=== PATIENT | female | born 1960 | race Caucasian/White ===

== ENCOUNTER → 2017-01-28 | Outpatient (CLI) | payer BC ==
[~2017-01-28] MED LIST: CALC600T9 PO; MULT1CAP6 PO; OSTEOBIFLEX PO; VITAMIN C PO
== END | disposition home or self-care (01) ==
LOC: C.RDSM 11:28
PROVIDERS: ATTEND Physical Medicine & Rehabilitation Sports Medicine
DX: Z47.1 Aftercare following joint replacement surgery (principal); Z96.649 Presence of unspecified artificial hip joint

== ENCOUNTER → 2017-05-31 | Outpatient (CLI) | payer BC ==
--- NOTE | 2017-05-31 15:49 | MAMMOGRAPHY REPORT ---
BILATERAL DIGITAL SCREENING MAMMOGRAM TOMOSYNTHESIS WITH CAD: 05/31/2017 CLINICAL HISTORY: Routine screening. Patient has no complaints. TECHNIQUE: Breast tomosynthesis in addition to standard 2D mammography was performed. Current study was also evaluated with a Computer Aided Detection (CAD) system. COMPARISON: Comparison is made to exams dated: 05/29/2016 mammogram, 05/26/2015 mammogram, 03/17/2014 edin mogram, 03/16/2013 mammogram, 03/13/2012 mammogram, and 03/12/2011 mammogram - [facility]. BREAST COMPOSITION: There are scattered areas of fibroglandular density in both breasts. FINDINGS: No suspicious masses, calcifications, or areas of architectural distortion are noted in ei ther breast. There has been no significant interval change compared to prior exams. A biopsy marker clip is again noted in the right upper outer quadrant. Benign-appearing right upper outer quadrant b reast masses are stable. IMPRESSION: ACR BI-RADS CATEGORY 2: BENIGN There is no mammographic evidence of malignancy. A 1 year screening mammogram is recommended. The pa tient will receive written notification of the results. Approximately 10% of breast cancers are not detected with mammography. A negative mammographic report should not delay biopsy if a clinically suggestive mass is present. Beth Herrmann M.D. /:05/31/2017 15:30:57 Motorcycle Subassembly Repairer: Lorin CORRAL(Luc)(M), [facility] letter sent: Normal 1/2 BI-RADS Code: ACR BI-RADS Category 2: Benign
== END | disposition home or self-care (01) ==
LOC: C.MAMM 14:36
PROVIDERS: ATTEND Family Medicine
DX: Z12.31 Encounter for screening mammogram for malignant neoplasm of breast (principal)

== ENCOUNTER 2021-02-01 06:07 | Observation (INO) ==
--- NOTE | 2021-01-06 14:16 | PAT Medication Instructions ---
Medication Instructions Date of Service January 06, 2021 Home Medications ascorbic acid (vitamin C) [Vitamin C] 500 mg PO HS calcium citrate-vitamin D3 [Citracal + D Maximum] 1 tab PO HS coQ10 (ubiquinol) 100 mg PO HS cranberry 500 mg PO HS ibuprofen 400 mg PO Q6H PRN lactobacillus combination no.4 [Probiotic] 3,000 mmu cells PO QAM magnesium oxide 400 mg PO HS multivitamin 1 tab PO HS [id number]-liikjrzc-lxvnsw [Vision Plus Lutein] 1 tab PO HS rosuvastatin [Crestor] 10 mg PO HS turmeric 400 mg PO HS vitamin B complex 1 tab PO HS ASK your surgeon for instructions ibuprofen 400 mg PO Q6H PRN STOP taking 2 weeks before surgery (or as soon as possible if surgery is within 2 weeks) coQ10 (ubiquinol) 100 mg PO HS cranberry 500 mg PO HS turmeric 400 mg PO HS DO NOT take the morning of surgery lactobacillus combination no.4 [Probiotic] 3,000 mmu cells PO QAM Take evening before surgery ascorbic acid (vitamin C) [Vitamin C] 500 mg PO HS calcium citrate-vitamin D3 [Citracal + D Maximum] 1 tab PO HS magnesium oxide 400 mg PO HS multivitamin 1 tab PO HS rosuvastatin [Crestor] 10 mg PO HS vitamin B complex 1 tab PO HS Other Notes If you have any questions please call us at [phone] or [phone] or [phone] or [phone]
--- NOTE | 2021-01-09 12:32 | Anesthesiology Consultation ---
Date of Service January 09, 2021 Assessment & Plan (1) Encounter for pre-operative examination: COVID Status: As of 01/09 assessment, patient denies travel to endemic area, known exposure/sick contacts, or symptoms of COVID19. Patient instructed that they and their household members must follow strict social distancing guidelines, wear a mask in public and avoid travel/events/gatherings for 14 days prior to surgery. Preoperative COVID19 testing to be completed prior to surgery per surgeon's arrangements. Patient made aware to self-isolate as much as possible between COVID testing and surgery. Travel via plane to [place] to see family 01/16-01/24, COVID test to be done 01/25 at [facility]. Pt is fully vaccinated. Discussed case with clinical PAT staff. In order to allow for time between higher-risk activity (flying) and COVID test, will skip 01/25 PSH test and do [place] test at [facility] on Tuesday 01/30. Surgeon's office made aware will need order placed for test to be done here on 01/30. Patient also notified. Chart Review Chart Review: Acceptable Risk for Surgery (pending pcp clearance 01/11) and Patient seen in Pre Admission Testing Teaching & Discussion Instructed NPO after midnight before surgery, except medications with 15 cc of water. Medication instructions provided according to the PAT guidelines. History Surgery Operation Date: 02/01/21 09:15 Proposed Procedures p Left Total Knee Arthroplasty - Bautista Giraldo MD Height/Weight Height: 5 ft 8 in Weight: 96.162 kg Allergies Allergy/AdvReac Type Severity Reaction Status Date / Time Penicillins Allergy Intermediate HIVES Verified 12/20/20 16:11 Medications Home Medications Medication Instructions Recorded Confirmed Last Taken ascorbic acid (vitamin C) [Vitamin 500 mg PO HS 12/20/20 12/20/20 Unknown C] calcium citrate-vitamin D3 1 tab PO HS 12/20/20 12/20/20 Unknown [Citracal + D Maximum] coQ10 (ubiquinol) 100 mg PO HS 12/20/20 12/20/20 Unknown cranberry 500 mg PO HS 12/20/20 12/20/20 Unknown ibuprofen 400 mg PO Q6H PRN 12/20/20 12/20/20 Unknown lactobacillus combination no.4 3,000 mmu cells PO QAM 12/20/20 12/20/20 Unknown [Probiotic] magnesium oxide 400 mg PO HS 12/20/20 12/20/20 Unknown multivitamin 1 tab PO HS 12/20/20 12/20/20 Unknown dewffskfqidu-uavkmhsl-ywqpnl 1 tab PO HS 12/20/20 12/20/20 Unknown [Vision Plus Lutein] rosuvastatin [Crestor] 10 mg PO HS 12/20/20 12/20/20 Unknown turmeric 400 mg PO HS 12/20/20 12/20/20 Unknown vitamin B complex 1 tab PO HS 12/20/20 12/20/20 Unknown Past Medical History Medical History Hyperlipidemia Obesity Osteoarthritis Sleep apnea CPAP -- pt reports full compliance, does not even nap without it. SOB (shortness of breath) on exertion OUT OF SHAPE-HASN'T EXERCISED LATELY Exercise / Class Metabolic Activity II 4-5 Yardwork/Stairs/Walk up hill Past Family History Family History Grandfather (Maternal) Family history of diabetes mellitus Past Surgical History Surgical History History of colonoscopy History of tonsillectomy History of total hip arthroplasty RIGHT Past Anesthesia History No Hx of Anesthesia Complications and No Family Hx of Anesthesia Complications History of PONV No Hx of PONV and No Hx of Motion Sickness Social History Smoking Status: Former smoker Do You Dip or Chew Tobacco: No Smoking End Date: QUIT IN COLLEGE Hx Alcohol Use: Yes Alcohol type: beer alcohol intake frequency: 0-2 drinks per day (1-2 per day, light beer) Hx Substance Use: No Review of Systems Pt denies any recent chest pain, shortness of breath, palpitations, cough, fever, URI, or uncontrolled acid reflux. Physical Exam Vital Signs BP: 113/76 P: 75bpm SPO2: 96% RA T: 98.1 F R: 16 ENMT Mouth: + dental restorations (many crowns and implants); no chipped teeth and no loose teeth Thyromental Distance: < 3.5 Finger Breadths (2.5) Mallampati Class: IV Neck + shortened thyromental distance; neck extension not limited Respiratory normal respiratory effort, lungs clear to auscultation Cardiovascular RRR, no murmur, no edema Testing Laboratory Results 01/09/21 12:47 01/09/21 12:47 PT 10.6 Seconds (9.0-12.0) 01/09/21 12:47 INR 1.0 (0.9-1.1) 01/09/21 12:47 APTT 25.4 Seconds (21.0-31.0) 01/09/21 12:47 Urine Color Yellow 01/09/21 12:47 Urine Appearance Clear (Clear) 01/09/21 12:47 Urine pH 5.5 (4.5-7.5) 01/09/21 12:47 Ur Specific [place] 1.007 (1.000-1.030) 01/09/21 12:47 Urine Protein Negative (Negative) 01/09/21 12:47 Urine Glucose (UA) Negative (Negative) 01/09/21 12:47 Urine Ketones Negative (Negative) 01/09/21 12:47 Urine Nitrite Negative (Negative) 01/09/21 12:47 Ur Leukocyte Esterase Negative (Negative) 01/09/21 12:47 Blood Type O Positive 01/09/21 12:47 Antibody Screen NEGATIVE 01/09/21 12:47 Electrocardiogram Date: 01/09/21 Findings: + NSR @ (63bpm) Low voltage QRS. No significant change compared with 2012 EKG. *unconfirmed Chest X-Ray Date: 01/09/21 FINDINGS: The cardiac and mediastinal contours are normal. There is no evidence of focal pulmonary consolidation. There is no evidence of failure. No pleural effusions are visualized.[A 5 mm left upper lung zone opacities felt to represent either a vascular summation or postinflammatory nodule. IMPRESSION: No active disease in the chest.
[2021-01-09 13:14] LABS: Basophils # (auto) 0.03 K/uL (0-0.2); Basophils % (auto) 0.5 %; Eosinophils % (auto) 1.7 %; Hematocrit (blood only) 40.1 % (37-47); Hemoglobin 13.6 g/dL (12.0-16.0); Lymphocytes # (auto) 2.25 K/uL (1.2-3.4); Lymphocytes % (auto) 38.1 %; Mean Corpuscular Hemoglobin 31.2 pg (25-34); Mean Corpuscular Hgb Conc 33.9 g/dL (32-36); Mean Platelet Volume 9.8 fL (7.4-10.4); Monocytes # (auto) 0.39 K/uL (0.11-0.59); Monocytes % (auto) 6.6 %; Neutrophils # (auto) 3.13 K/uL (1.4-6.5); Neutrophils % (auto) 53.1 %; Platelet Count 215 K/uL (130-400); RDW Standard Deviation 43.8 fL (36.4-46.3); Red Blood Count 4.36 M/uL (4.2-5.4)
[2021-01-09 13:21] LABS: Appearance Urine Clear (Clear); Bilirubin Urine Negative (Negative); Blood Urine Negative (Negative); Color Urine Yellow; Glucose Urine UA Negative (Negative); Ketones Urine Negative (Negative); Leukocyte Esterase Urine Negative (Negative); Nitrite Urine Negative (Negative); Protein Urine Negative (Negative); Specific Gravity Urine 1.007 (1.000-1.030); Urobilinogen Urine Negative (Negative); pH Urine 5.5 (4.5-7.5)
[2021-01-09 13:27] LABS: Partial Thromboplastin Time 25.4 Seconds (21.0-31.0); Prothrombin Time 10.6 Seconds (9.0-12.0)
--- NOTE | 2021-01-09 13:35 | XRay Report ---
XR chest Pre-admission PA/Lat CLINICAL HISTORY: Preoperative chest COMPARISON STUDY: December 2012 FINDINGS: The cardiac and mediastinal contours are normal. There is no evidence of focal pulmonary co nsolidation. There is no evidence of failure. No pleural effusions are visualized.[A 5 mm left upper lung zone opacities felt to represent either a vascular summation or postinflammatory nodule. IMPRESSION: No active disease in the chest. ACT 112: Negative or not required by law. Electronically signed by: Carlitos Yuen M.D. 01/09/2021 1:34 PM
[2021-01-09 15:11] LABS: Calcium 9.9 mg/dl (8.5-10.1); Creatinine Clr Calc Pharmacy 89.6 ml/min; Est GFR (African American) 90.8; Est GFR (Non-African American) 78.3
--- NOTE | 2021-01-10 14:21 | Electrocardiogram Report ---
Test Reason : Blood Pressure : / mmHG Vent. Rate : 063 BPM Atrial Rate : 063 BPM P-R Int : 150 ms QRS Dur : 076 ms QT Int : 410 ms P-R-T Axes : 057 022 059 degrees QTc Int : 419 ms Normal sinus rhythm Low voltage QRS Borderline ECG When compared with ECG of 12-JAN-2013 11:36, No significant change was found Confirmed by Gonzalo Renner ([id number]) on 01/10/2021 2:20:52 PM Referred By: Bautista Giraldo Confirmed By:Davonte Renner
--- NOTE | 2021-01-17 14:23 | History & Physical Report ---
Date of Service January 17, 2021 Assessment & Plan (1) Left knee DJD: Postoperative prescriptions for Percocet and Coumadin will be provided at discharge from the hospital. Anticipate discharge to home with home health services. Preoperative lab work, EKG, and chest x-ray have already been o rdered. She has already seen her PCP, Dr. Apodaca for medical clearance. PDMP was checked and there are no concerning findings. The patient is aware of the COVID-19 risks associated with surgery. She is currently asymptomatic of any COVID-19 symptoms. She will obtain her COVID nasal swab 1 week prior to surgery. The patient already has access to crutches or walker and a cane. History of Present Illness Chief Complaint: Left knee pain Primary Care Provider: Jennifer Apodaca DO This 60-year-old white female presents for her preoperative history and physical. She is scheduled to undergo a left knee total knee arthroplasty on 02/01/2021. The patient has had left knee pain for the last 3 years. It has become worse with time. She has tried activity modification as well as oral anti-inflammatories and oral pain medication without lasting improvement. She elects to proceed with surgical intervention after being educated about potential risks and outcomes. Preoperative imaging has been obtained. She denies any numbness or tingling. Pain is worse with weightbearing. It is affecting her ADLs. Allergies Allergy/AdvReac Type Severity Reaction Status Date / Time Penicillins Allergy Intermediate HIVES Verified 12/20/20 16:11 Home Medications Medication Instructions Recorded Confirmed Type ascorbic acid (vitamin C) [Vitamin 500 mg PO HS 12/20/20 12/20/20 History C] calcium citrate-vitamin D3 1 tab PO HS 12/20/20 12/20/20 History [Citracal + D Maximum] coQ10 (ubiquinol) 100 mg PO HS 12/20/20 12/20/20 History cranberry 500 mg PO HS 12/20/20 12/20/20 History ibuprofen 400 mg PO Q6H PRN 12/20/20 12/20/20 History lactobacillus combination no.4 3,000 mmu cells PO QAM 12/20/20 12/20/20 History [Probiotic] magnesium oxide 400 mg PO HS 12/20/20 12/20/20 History multivitamin 1 tab PO HS 12/20/20 12/20/20 History lejfpbowjffk-ywxomzig-qyixnj 1 tab PO HS 12/20/20 12/20/20 History [Vision Plus Lutein] rosuvastatin [Crestor] 10 mg PO HS 12/20/20 12/20/20 History turmeric 400 mg PO HS 12/20/20 12/20/20 History vitamin B complex 1 tab PO HS 12/20/20 12/20/20 History Past Med/Surg History Medical History (Updated 01/17/21 @ 14:22 by William Riggs PA-C) Depression Hyperlipidemia Obesity Osteoarthritis Sleep apnea CPAP -- pt reports full compliance, does not even nap without it. SOB (shortness of breath) on exertion OUT OF SHAPE-HASN'T EXERCISED LATELY Surgical History (Updated 01/17/21 @ 14:19 by William Riggs PA-C) H/O wisdom tooth extraction History of colonoscopy History of tonsillectomy History of total hip arthroplasty RIGHT Family History Grandfather (Maternal) Family history of diabetes mellitus Social History (Updated 01/17/21 @ 14:21 by William Riggs PA-C) Smoking Status: Former smoker Smoking End Date: QUIT IN COLLEGE; Second Hand Exposure: No; Do You Dip or Chew Tobacco: No; Hx Alcohol Use: Yes Alcohol type: beer Hx Substance Use: No Preferred Language: Azeri Communication Ability: Effective 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 Physical Exam Physical Exam: Vitals: Height 168 cm, weight 96 kg, BMI 34.0, temperature 36.3, BP 120/78, pulse 67, O2 sat 97% on room air, respirations 18. General: Well-developed, well-nourished middle-aged white female in no acute distress. Sitting in a chair. Alert and oriented. Skin: Warm and dry with good turgor. No rashes or lesions. No ecchymosis or erythema. HEENT: Normocephalic, atraumatic. Eyes: PERRLA, EOMI. Oropharynx and nares exams deferred due to COVID precautions. Heart: RRR, no MGR. Lungs: Clear to auscultation bilaterally, no crackles, rhonchi or wheezing, good air movement. Abdomen: Obese, bowel sounds present x4, soft, nontender. No organomegaly. No masses. Musculoskeletal: Left knee evaluation reveals no obvious asymmetry or defo rmity. Varus alignment. Full terminal extension. Flexion to around 100 degrees. Strength is 5/5 with fair quad tone. She has focal discomfort with palpation over the medial and lateral joint lines with medial being worst. There is crepitus palpable with motion. Stable collateral ligaments. No defect in the patellar tendon or quadriceps tendon. Ambulates with a slightly antalgic gait. Neurologic: Gross sensation is intact across the left leg by soft touch. Peripheral pulses are 2+. Results & Data Results & Data ([facility]) Diagnostic Findings Radiographic imaging previously obtained was reviewed with the patient. She has varus alignment with end-stage DJD. There is significant joint space narrowing, periarticular osteophytes and sclerosis.
[~2021-02-01 06:07] MED LIST changes: -CALC600T9 PO; +LR 500ML BOLUS, THEN 15ML/HR IV SCH; +LR 60ML/HR IV SCH; -MULT1CAP6 PO; -OSTEOBIFLEX PO; +ROPIVACAINE 0.5% HCL/PF 150 MG, BUPIVACAINE 0.75% MPF 20 ML, EPINEPHrine 0.15 MG, Ketor... INFIL SCH; +TRANEXAMIC ACID 1,000 MG **IV Pre-op IV SCH; +VANCOMYCIN HCL 1,500 MG in SODIUM CHLORIDE 0.9% 500 ML IV SCH; -VITAMIN C PO
--- NOTE | 2021-02-01 06:27 | History & Physical Bridge Note ---
Date of Service February 01, 2021 History & Physical Bridge Note I have examined the patient, reviewed the History & Physical and in the interval since the performance of the History & Physical I have noted the following changes of clinical significance: consent obtained/site verified/covid screen negative.no changes noted
[2021-02-01] MEDS ORDERED: EPINEPHrine INJ 1 MG/ML AMP ONE (06:40)
[2021-02-01] MEDS ORDERED: BUPIVACAINE 0.5 % 5 MG/1 ML PF 10ML VIAL ONE (06:40)
[2021-02-01] MEDS ORDERED: BUPIVACAINE 0.25% 30 ML VIAL ONE (06:41)
[2021-02-01] MEDS ORDERED: LIDOCAINE HCL 2% 2 ML VIAL/AMP(20MG/ML) INFIL ONE ×2 (07:18→07:20)
[2021-02-01] MEDS ORDERED: PROPOFOL IV EMULSION 10 MG/ML 20 ML VIAL IV ONE ×2 (07:18→07:20)
[2021-02-01] MEDS ORDERED: MIDAZOLAM HCL 1 MG/ML 2ML VIAL ONE ×2 (07:19→09:04)
[2021-02-01] MEDS ORDERED: fentaNYL citrate 100 MCG/2 ML VIAL ONE (07:19)
[2021-02-01] MEDS ORDERED: HYDROmorphone INJ 2 MG/ML SYR/VIAL IV PRN (08:22)
[2021-02-01] MEDS ORDERED: ONDANSETRON INJ 2 MG/ML 2 ML VIAL IV PRN ×2 (08:22→12:13)
[2021-02-01] MEDS ORDERED: ePHEDrine sulfate 50 MG/ML AMP IV PRN (08:22)
[2021-02-01] MEDS ORDERED: ATROPINE SULFATE 0.1 MG/ML 10ML SYR IV PRN (08:22)
[2021-02-01] MEDS ORDERED: fentaNYL citrate 100 MCG/2 ML VIAL IV PRN (08:22)
[2021-02-01] MEDS ORDERED: ORTHO JOINT ANESTHETIC ONE (08:49)
--- NOTE | 2021-02-01 10:43 | Post Operative Brief Note ---
Immediate Post Op Note v1 Date of Surgery February 01, 2021 Pre & Post Diagnosis Operation Date: 02/01/21 08:50 Pre-Op Diagnosis: Left Knee Degenerative Joint Disease Post-Op Diagnosis: Left Knee Degenerative Joint Disease I identified the patient and participated in the time-out.: Yes Procedure Operation Date: 02/01/21 08:50 Actual Procedures p Left Total Knee Arthroplasty(Left) - Bautista Giraldo MD Surgeon Bautista Giraldo MD Predatory Animal Exterminator [facility] Estimated Blood Loss 25 Findings Consistent with Post-Op Diagnosis
--- NOTE | 2021-02-01 10:53 | Operative Report ---
Post Operative Report Pre & Post Diagnosis Operation Date: 02/01/21 08:50 Pre-Op Diagnosis: Left Knee Degenerative Joint Disease Post-Op Diagnosis: Left Knee Degenerative Joint Disease I identified the patient and participated in the time-out.: Yes Procedure Operation Date: 02/01/21 08:50 Actual Procedures p Left Total Knee Arthroplasty(Left) - Bautista Giraldo MD Surgeon HESHAM Giraldo MD Foundry Engineer Oneil CHISHOLM Estimated Blood Loss 25 Findings Consistent with Post-Op Diagnosis Specimens see operative report Drains none Complications none Disposition Accompanied Patient To Recovery: Yes Disposition: Recovery Room Indications This 60-year-old female presented to the office with complaints of persisting left knee pain. She had tried conservative care measures without improvement. Patient elected to proceed with surgical intervention after being educated about potential risks and outcomes. Preoperative imaging was obtained. Description of Procedure Patient was administered a spinal anesthetic and then taken to the operating room where she was given sedation. She was prepped and draped in the usual sterile fashion. Please see Dr. Giraldo's operative report for specifics of the procedure. I was present for the entire case from initial patient positioning through final wound closure. Assistance was provided in tissue retraction, hemostasis, trial implant placement, final implant placement, and final wound closure. Patient was taken to the recovery room in satisfactory condition. I attest to the content of the Intraoperative Record and any orders documented therein. Any exceptions are noted below.
--- NOTE | 2021-02-01 10:59 | Operative Report (OR) ---
DATE OF OPERATION: 02/01/2021 SURGEON: Bautista Giraldo MD. FOOD SAFETY SCIENTIST: RAGINI Miranda. No resident or fellow available. PREOPERATIVE DIAGNOSIS: Osteoarthritis with varus deformity, left knee. POSTOPERATIVE DIAGNOSIS: Osteoarthritis with varus deformity, left knee. OPERATION PERFORMED: Cemented left total knee replacement. SUMMARY OF IMPLANTS: Size 3 left femur, size 3 mobile bearing tray, size 3 x 12.5 mm posterior cruciate substituting insert, size 41 patella, 2 bags of Palacos G cement. PATHOLOGY: Bone pathology pending. CRYSTALLOID: Per anesthesia. ESTIMATED BLOOD LOSS: 25 mL DVT prophylaxis per protocol. PERIOPERATIVE SITUATION: Medically cleared female with intractable knee pain, has significant [id number] findings with x-rays with pseudosubluxation or varus deformity. She wished to proceed with surgical treatment, has failed conservative management for years. DESCRIPTION OF PROCEDURE: The patient was appropriately identified, site verified, consent verified. Antibiotics confirmed as being given. The left lower extremity was prepped and draped in usual routine fashion. Tourniquet inflated to 275 mmHg after exsanguination of limb with a rubber Esmarch bandage for a total of 47 minutes. Midline exposure utilized. Parapatellar arthrotomy performed. Synovectomy completed, osteophytes resected. Distal femur then entered. Cruciates resected. Tibia was subluxated, menisci resected. Distal femur resected 12 mm, proximal tibia 4 mm, extension gap was excellent. The femur was sized between a 4 and a 3, was measured 4 cut 3. There was no notching. Flexion gap was excellent. Box cut made and the size 3 fit well. Tibia was then broached and reamed to a size 3 and with a 12.5 spacer, the knee was stable and reached full extension and had good mid range stability and full flexion. The patella tracked well. Patella was then resected leaving 15 mm and a 41 patellar trial button was drilled into place and tracked well. The Orthomix was then injected all about the knee including posteriorly. All trial implants were removed. The knee irrigated with Betadine Pulsavac and then the permanent cemented into position, tibia, femur and patella in that order. At 12 minutes, the tourniquet deflated. Minor bleeding points controlled with electrocautery. At 14 minutes, knee flexed. The trial spacer removed and the knee irrigated. Small cement removal required. Wound was then irrigated one final time with Betadine Pulsavac, the permanent liner seated, knee reduced and closed at 30 degrees of flexion with #2 Vicryl, 2-0 Vicryl and stainless steel clips. Appropriate dressing applied. The patient transferred to recovery room in satisfactory condition having tolerated the procedure well. I attest to the content of the Intraoperative Record and any orders documented therein. Any exception s are noted below.
--- NOTE | 2021-02-01 11:09 | Anesthesiology Progress Note ---
Date of Service February 01, 2021 Anesthesia Post Procedure Vital Signs Vital Signs: Temp Pulse Pulse Resp BP Pulse Ox 02/01/21 11:00 76 17 94/68 L 95 02/01/21 10:52 36.1 C L 81 18 102/64 97 02/01/21 06:38 36.8 C 73 20 138/94 96 Transfer of Care Handoff Completed per policy Notes Mental Status: alert / awake / arousable and participated in evaluation Patient Amnestic to Procedure: Yes Nausea / Vomiting: adequately controlled Pain: adequately controlled Airway Patency, RR, SpO2: stable & adequate BP & HR: stable & adequate Hydration State: stable & adequate Anesthetic Complications: no major complications apparent and Pt Satisfied with anesthetic care
--- NOTE | 2021-02-01 11:09 | XRay Report ---
XR knee LT 1 or 2V routine CLINICAL HISTORY: S/P L TKA COMPARISON: Left knee radiographs September 19, 2020. FINDINGS: Alignment of the total left knee arthroplasty is anatomic. There is no periprosthetic frac ture or unexpected radiopaque foreign body. There are skin jaky. IMPRESSION: Expected findings following total left knee arthroplasty. ACT 112: Negative or not required by law. Electronically signed by: Abdoulaye Lawrence M.D. 02/01/2021 11:08 AM
--- NOTE | 2021-02-01 11:09 | Discharge Summary (DS) ---
Potential date of discharge 02/02/2021. CHIEF COMPLAINT: Left knee pain. HISTORY OF PRESENT ILLNESS: The patient underwent elective left total knee replacement. She is doing well. She has no major issues. She denies any chest pain, shortness of breath, fever, chills, nausea, vomiting or headache. Medication reconciliation sheet is mostly with vitamins and ibuprofen. She is not on any real prescription medications. She will be discharged on some pain medication and a blood thinner. PAST MEDICAL HISTORY: Remarkable for depression, hyperlipidemia, obesity, osteoarthritis, sleep apnea, uses a CPAP. PAST SURGICAL HISTORY: Remarkable for wisdom teeth, colonoscopy, tonsillectomy, hip arthroplasty on the right. SOCIAL HISTORY: Reveals that she is a former smoker, quit in college. No secondhand exposure. Does not chew. Social alcohol only. She is retired. She is a , lives alone. She feels safe at home. She has a parent that is alive. She uses CPAP and glasses. REVIEW OF SYSTEMS: As noted and negative.Postoperative x-rays look excellent. ASSESSMENT: Overall, doing well status post left total knee replacement. Continue with care pathway and discharge to home tomorrow if she does well tonight. DMITRY
--- NOTE | 2021-02-01 11:24 | Progress Notes ---
DATE: 02/01/2021 SUBJECTIVE: Postop check, status post left total knee replacement. The patient is doing well. She denies chest pain, shortness of breath, fever, chills, nausea, vomiting or headache. OBJECTIVE: Vital signs are stable. She is afebrile. Neurovascular check is limited by her spinal. Wound dressing area is clean and dry. The patient's family was notified that her surgery is done. She states she appreciates that she is doing well; follow up with x-ray in recovery room looks excellent. Mobilize to tolerance as x-rays good. Discharge planning with case management. Discharge on pain medication and anticoagulant. DMITRY
[2021-02-01] MEDS ORDERED: diphenhydrAMINE 50 MG/ML VIAL IV PRN (12:13)
[2021-02-01] MEDS ORDERED: HYDROmorphone INJ 0.5 MG/0.5 ML SYR IV PRN (12:13)
[2021-02-01] MEDS ORDERED: oxyCODONE HCL IR 5 MG TAB (IMMEDIATE RELEASE) PO PRN (12:13)
[2021-02-01] MEDS ORDERED: MAGNESIUM HYDROXIDE SUSP 30 ML UDC PO PRN (12:13)
[2021-02-01] MEDS ORDERED: SODIUM CHLORIDE 0.9% 1000ML 1,000 ML IV SCH (12:13)
[2021-02-01] MEDS ORDERED: bisacodyL 10 MG SUPP PR PRN (12:13)
[2021-02-01] MEDS ORDERED: NALOXONE HCL 0.4 MG/1 ML VIAL/CARP IV PRN (12:13)
[2021-02-01] MEDS ORDERED: ALUMINUM/MAGNESIUM SUSP 30 ML UDC PO PRN (12:13)
[2021-02-01] MEDS ORDERED: METOCLOPRAMIDE HCL INJ 5 MG/ML 2 ML VIAL IV PRN (12:13)
[2021-02-01] MEDS ORDERED: ePHEDrine sulfate 50 MG/ML SYR ONE (12:34)
[2021-02-01] MEDS ORDERED: PHENYLEPHRINE 100MCG/ML 5ML SYR ONE (12:34)
[2021-02-01] MEDS ORDERED: ORTHO WARFARIN NOMOGRAM SCH (14:00)
[2021-02-01] MEDS: KETOROLAC 30 MG/ML VIAL IV SCH ×3 (14:02→19:52)
[2021-02-01] MEDS: ACETAMINOPHEN 500 MG TAB PO SCH ×3 (14:02→21:27)
[2021-02-01] MEDS ORDERED: WARFARIN SOD 5 MG TAB PO SCH (16:00)
[2021-02-01] MEDS ORDERED: TRANEXAMIC ACID / 0.7% NACL 1,000 MG/100 ML BAG IV ONE (17:00)
[2021-02-01] MEDS: FERROUS GLUCONATE 324 MG TAB PO SCH (17:17)
[2021-02-01] MEDS: ASCORBIC ACID 500 MG TAB PO SCH (17:17)
[2021-02-01] MEDS ORDERED: VANCOMYCIN HCL 1,500 MG in SODIUM CHLORIDE 0.9% 500 ML IV SCH (19:00)
[2021-02-01] MEDS: DOCUSATE SODIUM 100 MG CAP PO SCH (19:54)
[2021-02-01] MEDS ORDERED: MAGNESIUM OXIDE 400 MG TAB PO SCH (21:00)
[2021-02-01] MEDS ORDERED: SENNA 8.6 MG TAB PO SCH (21:00)
[2021-02-01] MEDS ORDERED: ROSUVASTATIN CALCIUM 10 MG TAB PO SCH (21:00)
[2021-02-02] MEDS: KETOROLAC 30 MG/ML VIAL IV SCH ×2 (01:50→08:24)
[2021-02-02] MEDS: ACETAMINOPHEN 500 MG TAB PO SCH (05:12)
[2021-02-02 06:40] LABS: Hematocrit (blood only) 36.2 % (37-47); Hemoglobin 12.2 g/dL (12.0-16.0); Mean Corpuscular Hemoglobin 31.3 pg (25-34); Mean Corpuscular Hgb Conc 33.7 g/dL (32-36); Mean Corpuscular Volume 92.8 fL (80-100); Mean Platelet Volume 9.5 fL (7.4-10.4); Platelet Count 196 K/uL (130-400); RDW Coefficient of Variation 13.1 % (11.5-14.5); RDW Standard Deviation 43.9 fL (36.4-46.3); White Blood Count 12.17 K/uL (4.8-10.8)
[2021-02-02 06:48] LABS: INR 1.1 (0.9-1.1); Prothrombin Time 10.7 Seconds (9.0-12.0)
[2021-02-02 07:12] LABS: BUN Creatinine Ratio 15.5 (10-20); Calcium 8.8 mg/dl (8.5-10.1); Creatinine Clr Calc Pharmacy 93.9 ml/min; Est GFR (Non-African American) 84.5 ml/min; Potassium 4.1 mmol/L (3.5-5.1)
--- NOTE | 2021-02-02 07:51 | Progress Notes ---
DATE: 02/02/2021 SUBJECTIVE: The patient is postop day #1 status post left total knee replacement. She is doing well. She has no major issues. She denies chest pain, shortness of breath, fever, chills, nausea, vomiting or headache. She is up ambulating in her room. OBJECTIVE: Vital signs are stable. She is afebrile. Hematocrit stable at 36. INR is subtherapeutic. Wound dressing clean, dry and intact. Neurovascular check, femoral sciatic nerve is normal. ASSESSMENT: Doing well. Discharge to home today. Coumadin per nomogram. Follow up in 2 weeks for staple removal.
[2021-02-02] MEDS ORDERED: dexAMETHasone 10 MG in SYRINGE 0 ML IV SCH (08:00)
[2021-02-02] MEDS: ASCORBIC ACID 500 MG TAB PO SCH (08:24)
[2021-02-02] MEDS: FERROUS GLUCONATE 324 MG TAB PO SCH (08:24)
[2021-02-02] MEDS: DOCUSATE SODIUM 100 MG CAP PO SCH (08:24)
[2021-02-02] MEDS ORDERED: MULTIVITAMIN TAB PO SCH (09:00)
--- NOTE | 2021-02-02 10:26 | Orthopedic Progress Note ---
Date of Service February 02, 2021 Assessment & Plan (1) S/P total knee replacement using cement: Patient is seen in her room this morning. She is educated regarding today's findings. Surgical dressings were replaced by me. KATERINA hose was applied. She will leave these in place until Saturday, and then change as needed for soiling. She will be discharged to home today with home health services. Coumadin today per nomogram. She will start her home dosing tomorrow. Prescriptions for Percocet and Coumadin have been sent to her pharmacy. Written discharge instructions have been provided. Follow-up in the office on February 16 for staple removal as scheduled. Admission and Anticipated Discharge Date Admission Date: February 01, 2021 Subjective Patient is seen in her room this morning. She is in good spirits. States she feels well. She would like to be discharged today. She denies any chest pain, nausea, vomiting, shortness of breath, abdominal pain, or significant knee pain. She has been out of bed. Review of Systems Review of Systems: Unchanged from yesterday. Physical Exam Physical Exam: General: Well-developed, well-nourished, middle-aged female, in no acute distress. Sitting in her bed. Alert and oriented. Conversive. Skin: Warm and dry with good turgor. No rashes or lesions. Postsurgical dressings are in place. Upon removal, she has no significant ecchymosis or ed rosy. Flores are intact. Wound edges are well approximated. No active bleeding. Scant dried drainage on her dressings. Musculoskeletal: Patient has intact motor function of her hip, knee, and ankle. Full terminal extension. Flexion to around 45 degrees easily. She is able to perform a straight leg raise. Neurologic: Gross sensation is intact across the left lower extremity by soft touch. Peripheral pulses are 2+. Results & Data ([facility]) Vital Signs (Past 12 Hours) Vital Signs Temp Pulse Resp BP Pulse Ox 02/02/21 08:18 36.6 C 61 18 111/72 97 02/01/21 22:42 36.6 C 55 L 18 97/58 L 97 Laboratory Results H&H obtained this morning is 12.2 and 36.2. WBCs 12.17. INR is 1.1. PRP is entirely unremarkable.
[2021-02-02] MEDS ORDERED: WARFARIN SOD 5 MG TAB PO STA (12:24)
[2021-02-02] MEDS ORDERED: NURSING LOW INTENSITY WARFARIN NOMOGRAM SCH (14:00)
[2021-02-02] MEDS ORDERED: ORTHO WARFARIN NOMOGRAM SCH (14:00)
== END 2021-02-02 12:30 | disposition home health service (06) ==
LOC: 3E 06:07 → ASU 06:07